=== PATIENT | female | born 1955 | race Caucasian/White ===

== ENCOUNTER 2025-06-26 18:19 | Emergency (ER) | payer MEDICARE ==
[~2025-06-26] VITALS: Ht 157.5 cm; Wt 50.9 kg
[2025-06-26 18:29] VITALS: BP 150/61; PULSE 100; RESP 15; TEMP 97.6; O2SAT 96
[2025-06-26] MEDS ORDERED: AZIT-164 PO (18:57)
--- NOTE | 2025-06-26 18:58 | Physician Documentation ---
History of Present Illness ~ Chief Complaint: Ear Pain Stated Complaint: SEE CHIEF COMPLAINT Time Seen by MD: 18:52 OK to notify your PCP?: Yes Source: patient Mode of Arrival: POV Exam Limitations: no limitations HPI 69-year-old female presents for left ear pain, cough and sore throat after she has been traveling. 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 She reports that she carries an antibiotic with her to prevent any further lung infections which are prescribed by her pastry wrapper for this very reason. She forgot them at home though. She denies any fevers. Medication Reconciliation Allergies: Coded Allergies: Sulfa (Sulfonamide Antibiotics) (Verified Allergy, Unknown, 06/26/25) acetaminophen (Verified Allergy, Unknown, 06/26/25) hydrocodone (Verified Allergy, Unknown, 06/26/25) latex (Verified Allergy, Unknown, 06/26/25) Scheduled Azithromycin (Zithromax), 1 TAB PO DAILY Review of Systems All Other Systems at this time: Reviewed and Negative Physical Exam Vital Signs: RN Vital Signs have been reviewed: Yes, Temperature: 97.6, Source: Temporal, Heart Rate: 100, Respiratory Rate: 15, BP: 150/61, Pulse Oximetry: 96, Weight: 50.900 Pulse Oximetry Reflects: adequate oxygenation Physical Exam General: Alert, no apparent distress. HEENT: PERRL, EOMI, no injection, moist mucous membranes. Right TM clear, there is excess ear wax buildup. Left TM clear, no erythema noted. Posterior pharynx erythema, uvula midline Neck: Full range of motion. Respiratory: Lungs clear, no respiratory distress. Chest: No accessory muscle use. Cardiovascular: Regular rate and rhythm, no murmurs. Gastrointestinal: Soft, nontender, nondistended. Bowels sounds present. Extremities: Normal range of motion, no deformity. Neurologic: Oriented x4. Psychiatric: Normal mood and affect. Skin: Normal color, warm and dry. No edema, no ecchymosis. 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 Her physical exam was unremarkable, except for some posterior pharynx erythema. She has plans to follow up with her pastry wrapper next week as she is going to be started on a new medication for her disorder. She has no other medical complaints or respiratory distress. Ear Diff. Dx: Considerations: Include: Otitis externa, Otitis media Throat Diff Dx: Considerations: Include: Epiglottitis (Urged), Infection mononucleosis, Kevin's angina, Peritonsillar abscess, Peritonsillar cellulitis Departure Disposition: HOME / SELF CARE / HOMELESS Impression: Primary Impression: Upper respiratory infection, acute Condition: Stable Discharge Instructions: Upper Respiratory Infection, Adult, [place] Additional Instructions: Please take all antibiotics as prescribed. Follow up with your pastry wrapper as planned. Return to a local ER for any new or worsening symptoms. Referrals: NO PRIMARY CARE PROVIDER (PCP) Prescriptions Azithromycin (Zithromax) 250 Mg Tablet 1 TAB PO DAILY, #5 TAB Prov: IVETH KLINE 06/26/25 Education Educated: Patient Educated regarding: diagnosis, treatment, prognosis, need for follow up Additional Comment Medical Screen Exam This patient recieved a medical screening examination. After reviewing the individual's medical complaints with presenting symptoms and performing an appropriate physical examination, it was determined that no immediate life- threatening emergency medical condition is present. This individual is also not a women having contractions. Signature Scribe Signature: . Attestation: Scribed for Iveth Kline by Iveth Kumar NP . 06/26/25 19:00 Parts of this note were created using [employer] voice recognition software program. While efforts were made to correct any mistakes made by this voice recognition software program, nonsensical phrases may remain in this note. In addition, there may be errors and syntax, grammar, content and spelling. IVETH KLINE Jun 26, 2025 18:58
== END 2025-06-26 19:36 | disposition home or self-care (01) ==
LOC: ER 18:20
DX: J06.9 Acute upper respiratory infection, unspecified (principal); H92.02 Otalgia, left ear; Z88.2 Allergy status to sulfonamides; Z88.5 Allergy status to narcotic agent
CPT/HCPCS: 99283